=== PATIENT | male | born 2000 | race Caucasian/White ===

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

== ENCOUNTER 2019-01-29 15:46 | Outpatient (CLI) | payer MEDICAID, SELFPAY ==
[2019-01-29 16:25] LABS: Absolute Basophil Count 0.02 k/cumm (0.0-0.2); Absolute Eosinophil Count 0.03 k/cumm (0.0-0.7); Absolute Lymphocyte Count 1.65 k/cumm (1.2-3.4); Absolute Monocyte Count 0.59 k/cumm (0.11-0.7); Absolute Neutrophil Count 2.34 k/cumm (1.2-6.7); Basophils % 0.4; Eosinophils % 0.6; HCT 47.4 % (40.0-50.0); HGB 16.5 g/dL (13.5-17.5); Lymphocytes % 35.6; Mean Corp. HGB Concentration 34.8 g/dL (32.0-36.0); Mean Corpuscular Hemoglobin 30.6 pg (27.0-33.0); Mean Corpuscular Volume 87.8 fL (80-95); Mean Platelet Volume 11.3 fL (8.0-11.0); Monocytes % 12.7; Neutrophils % 50.7; Platelet Count 236 x1000/uL (130-400); RBC Distribution Width 12.5 % (11.8-14.1); White Blood Cell Count 4.63 k/cumm (4.4-10.8)
[2019-01-29 17:03] LABS: ESR 3 MM/HR (0-15)
[2019-01-29 18:07] LABS: ALT 34 U/L (12-78); AST 16 U/L (15-37); Albumin 4.3 g/dL (3.4-5.0); Alkaline Phosphatase 162 U/L (46-116); Anion Gap 9.8 mmol/L (3-11); BUN 10 mg/dL (7-18); Bilirubin, Total 0.7 mg/dL (0.2-1.0); CO2 27.2 mmol/L (21.0-32.0); Calcium 9.2 mg/dL (8.5-10.1); Chloride 105 mmol/L (98-107); Glucose 97 mg/dL (70-100); Potassium 4.2 mmol/L (3.5-5.1); Sodium 142 mmol/L (136-145); Total Protein 7.2 g/dL (6.4-8.2)
[2019-01-30 14:48] LABS: C-Reactive Protein 0.16 mg/dL (0.0-0.3)
[2019-02-01 12:09] LABS: Lyme Ab w Rflx to Lyme Confirm Negative
[2019-02-02 20:57] LABS: Anaplasma phagocytophilum Negative (Negative); B. miyamotoi PCR Negative (Negative); Babesia divergens/MO-1 Negative (Negative); Babesia duncani Negative (Negative); Babesia microti Negative (Negative); Ehrlichia chaffeensis Negative (Negative); Ehrlichia ewingii/canis Negative (Negative); Ehrlichia muris eauclairensis Negative (Negative)
== END 2019-01-29 16:06 ==
PROVIDERS: PCP Pediatrics; Visit Provider Nurse Practitioner Family
DX: R51 Headache (principal)
CPT/HCPCS: 36415; 80053; 85652; 85025; 86140; 86618; 87798

== ENCOUNTER 2019-02-01 06:28 | Outpatient (CLI) | payer MEDICAID, SELFPAY ==
--- NOTE | 2019-02-01 08:37 | DI.CT_ITS ---
SYMPTOM/DIAGNOSIS: HEADACHE AND PRESSURE NONCONTRAST HEAD CT: There are no prior comparison exams. No intracranial hemorrhage, mass or infarct is seen. The ventricles are normal in size. The sinuses and mastoid air cells appear clear. The orbits are unremarkable. IMPRESSION: Negative head CT. SINUS CT: The nasal septum is deviated toward the right. There is a spur projecting toward the right from the nasal septum. There is a small mucus retention cyst at the roof of the right maxillary sinus. There is mild mucosal thickening of the maxillary sinuses. The left ostiomeatal complex appears patent. There may be occlusion of the right ostiomeatal complex. The frontal and sphenoid sinuses are unremarkable. IMPRESSION: Deviated septum with spur. Small mucus retention cyst versus polyp at the roof the right maxillary sinus.
== END 2019-02-01 06:48 ==
PROVIDERS: PCP Pediatrics; Visit Provider Nurse Practitioner Family
DX: R51 Headache (principal); J34.2 Deviated nasal septum; J34.89 Other specified disorders of nose and nasal sinuses
CPT/HCPCS: 70450; 70486

== ENCOUNTER 2019-06-03 12:50 | Outpatient (CLI) | payer MEDICAID, SELFPAY ==
[2019-06-03 14:56] LABS: Anion Gap 10.6 mmol/L (3-11); CO2 28.4 mmol/L (21.0-32.0); Chloride 102 mmol/L (98-107); Potassium 3.9 mmol/L (3.5-5.1); Sodium 141 mmol/L (136-145); Vitamin B12 499 pg/mL (193-986)
== END 2019-06-03 13:10 ==
PROVIDERS: PCP Pediatrics; Visit Provider Otolaryngology Otolaryngology/Facial Plastic Surgery
DX: R51 Headache (principal)
CPT/HCPCS: 36415; 80051; 82607; 82746; 84443

== ENCOUNTER 2019-06-14 00:57 | Outpatient (CLI) | payer MEDICAID, SELFPAY ==
[2019-06-14] MEDS: Normal Saline Flush 10 ML SYR IVP (14:58)
[2019-06-14] MEDS: Gadoterate meglumine 20 ML VIAL 19 ML IVP (14:59)
--- NOTE | 2019-06-14 15:47 | DI.MRI_ITS ---
EXAM: MR IAC BRAIN WO/W CLINICAL HISTORY: NONINTRACTABLE EPISODIC KAUR, R51. TECHNIQUE: Multiplanar multisequence MRI was performed. COMPARISON: CT HEAD SINUS WO from 02/01/2019 FINDINGS: There is normal signal in the brain parenchyma. The ventricles are intact. The basilar cisterns are patent. Diffusion-weighted images have a normal appearance. Gradient images show no evidence of in tracranial hemorrhage. There is a normal flow void in the [id number]. The pituitary gland maylin ears unremarkable. The visualized paranasal sinuses are clear. No masses are seen in the internal a uditory canals or cerebellopontine angles. Following contrast administration no enhancing lesions are seen. No masses are seen. IMPRESSION: Normal MRI of the brain.
== END 2019-06-14 01:17 ==
PROVIDERS: PCP Pediatrics; Visit Provider Otolaryngology Otolaryngology/Facial Plastic Surgery
DX: R51 Headache (principal)
CPT/HCPCS: 70553

== ENCOUNTER 2024-01-15 17:09 | Emergency (ER) | payer OTHER, MEDICAID, SELFPAY ==
[2024-01-15 17:11] VITALS: BP 160/82; PULSE 75; RESP 18; TEMP 36.8; O2SAT 100
--- NOTE | 2024-01-15 17:15 | DI.CT_ITS ---
Exam(s) CT HEAD FACIAL WO EXAM: CT HEAD FACIAL WO CLINICAL HISTORY: heavy object fell on his face/head. TECHNIQUE: Imaging Protocol: Axial computed tomography images with coronal and sagittal reformatted images were created and reviewed COMPARISON: CT CT HEAD SINUS WO from 02/01/2019 FINDINGS: BRAIN: There are no skull fractures nor fluid in the visualized paranasal sinuses. There is no evidence of intracranial hemorrhage, mass effect, or shift of midline structures. There are no extra-axial fluid collections. The ventricles are not enlarged or shifted and there is no blo od within the ventricular system nor within the basal cisterns. MAXILLOFACIAL CT SCAN: There is no evidence of acute facial fractures. No evidence of orbital blowout fracture. There is m ucosal thickening circumferentially within the left maxillary sinus without an associated fluid level . The right maxillary sinus is clear. Mild mucosal thickening noted in the left frontoethmoidal rec ess. Nasal bone fracture on the right side which does not appear acute and was previously present on CT sc an of January 2019. IMPRESSION: No acute intracranial findings on this noninfused CT scan of the brain.No skull fracture. No evidence of acute facial bone fractures nor orbital fractures. Mucosal thickening in left maxillary sinus. No fluid level. Called by myself to ER physician RADIATION DOSE DELIVERED: 1,569.01mGy.cm Total DLP DATA REPOSITORY: All CT scans at this facility are submitted to the National Radiology Data Registry (NRDR) Dose Index Registry (DIR) with the [employer] (A[employer]). RADIATION OPTIMIZATION: All CT scans at this facility use at least one of these dose optimization te chniques: automated exposure control; mA and/or kV adjustment per patient size (includes targeted exa ms where dose is matched to clinical indication); or iterative reconstruction.
--- NOTE | 2024-01-15 17:26 | ED.GENADUL_ITS ---
Discharge Plan Disposition Patient Disposition: Home Condition: Stable Discharge Details Chief Complaint: HeadInjury Clinical Impression: Blunt trauma of face, Blunt head trauma Primary Care Provider: None,None ED Provider: Kwasi Esparza Home Meds and New Rx's Prescriptions: No Action No Known Home Meds Discharge Instructions Additional Instructions: Your CAT scan did not show any concerning findings If you have lingering headaches or issues with your memory follow-up with your primary care provider within a week If you feel more ill, have severe worsening pain or new symptoms such as persistent vomiting return to the emergency department for reevaluation Stand Alone Forms: Work Release [facility] General Mode of arrival: ambulatory . Date/Time Provider Initiated Documentation: 01/15/24 17:15 . Limitations to Documentation: no limitations . Information obtained by: patient . History of Present Illness 23 year old M presents to the emergency department with the chief complaint of Patient had trauma, described as moderate, Quality is described as aching, Patient reports no radiation. Patient started experiencing this hour(s) (3) and it has been constant. No relieving factors improve symptom(s), No exacerbating factors reported . Patient notes denies chest pain and shortness of breath. Related Data Home Medications Medication Instructions Recorded Confirmed Unknown [No Known Home Meds] 01/15/24 01/15/24 Allergies Allergy/AdvReac Type Severity Reaction Status Date / Time No Known Allergies Allergy Unverified 01/15/24 17:13 General Stated Complaint: HeadInjury DULCE: 3 Review of Systems All systems reviewed & are unremarkable except as noted in HPI and below Constitutional Constitutional: Denies chills, Denies fever(s) and Denies weakness Cardiovascular Cardiovascular: Denies chest pain and Denies dyspnea Respiratory Respiratory: Denies cough and Denies dyspnea Gastrointestinal Gastrointestinal: Denies abdominal pain, Denies nausea and Denies vomiting Musculoskeletal Musculoskeletal: Denies joint swelling Neurologic Neurologic: Denies weakness Psychiatric Psychiatric: Denies depression Exam Const General: no acute distress Orientation: alert and oriented x3 HENMT Head: no Giraldo's sign and no scalp tenderness Ears: external ears normal General nose exam: external nose normal Mouth: moist mucous membranes Eyes General: appearance normal, both eyes and all related structures Neck Neck: normal visual inspection Resp Effort & Inspection: normal respiratory effort and able to speak in complete sentences Cardio Rate: regular rate Skin General skin exam: no rashes or lesions noted Neuro General: patient alert and patient oriented x3 Extrem General: normal to inspection Psych Mental Status: mental status grossly normal Course Vital Signs Vital signs: Vital Signs Temperature 36.8 C 01/15/24 17:11 Pulse 75 01/15/24 17:11 Respiratory Rate 18 01/15/24 17:11 Blood Pressure 160/82 H 01/15/24 17:11 Pulse Oximetry 100 01/15/24 17:11 Temperature 36.8 C 01/15/24 17:11 Temperature Source Skin 01/15/24 17:11 Pulse 75 01/15/24 17:11 Respiratory Rate 18 01/15/24 17:11 Respiratory Effort Normal, Non-Labored 01/15/24 17:14 Blood Pressure 160/82 H 01/15/24 17:11 Blood Pressure Position Sitting 01/15/24 17:11 Pulse Oximetry 100 01/15/24 17:11 Oxygen Delivery Method Room Air 01/15/24 17:11 Oxygen Flow Rate 0 01/15/24 17:11 Pain Level 3 01/15/24 17:11 Medical Decision Making 23-year-old male who denies any significant chronic medical problems, comes in after he was at work around 245 this afternoon and about a 100 pound object fell from 15 feet landing on his face and head. Denies loss of consciousness, nausea but no vomiting since. He has swelling to the mid anterior nose, no septal hematoma, no scalp hematomas, he is alert and oriented x 4 on arrival speaking clearly, pedal nerves II through XII are intact, no midline C-spine tenderness. Suspect facial contusion and concussion but will obtain CT head and face to evaluate for traumatic injury Differential Diagnosis Differential Diagnosis: Facial fracture, TBI, concussion Quality:SDOH Health Related Social Needs: No Data to Display PFSH All Active Problems (Updated 01/15/24 @ 18:52 by Kwasi Esparza MD) Blunt head trauma (Acute) Blunt trauma of face (Acute) Visual changes (Acute) Disequilibrium (Acute) Nonintractable episodic headache (Acute) Precordial catch syndrome (Acute 05/29/16) Routine sports examination for healthy child or adolescent (Acute) Medical History Scoliosis History of tobacco use Hypertension Headache Family History Mother Healthy adult on routine physical examination Father Healthy adult on routine physical examination Other Diabetes pat aunt Personal history of malignant neoplasm MGGM-breast Social History Smoking/Tobacco Use Status: Former Tobacco Use Smoking risk assessment performed?: Yes Alcohol Intake: current Alcohol Intake frequency: a few times a week Drug use: Never
[2024-01-15] MEDS: Ibuprofen 600 MG TAB PO (17:32)
[2024-01-15 18:17] VITALS: BP 154/85; PULSE 74; RESP 14; O2SAT 99
[2024-01-15 19:01] VITALS: BP 171/100; PULSE 69; RESP 18; O2SAT 100
== END 2024-01-15 19:03 | disposition home or self-care (01) ==
PROVIDERS: Emergency Provider Emergency Medicine
DX: S02.2XXA Fracture of nasal bones, initial encounter for closed fracture (principal); S09.93XA Unspecified injury of face, initial encounter; Z87.891 Personal history of nicotine dependence; W31.89XA Contact with other specified machinery, initial encounter; Y93.89 Activity, other specified; Y92.89 Other specified places as the place of occurrence of the external cause; Y99.0 Civilian activity done for income or pay; I10 Essential (primary) hypertension
CPT/HCPCS: 99284; 70450; 70486

== ENCOUNTER 2025-05-08 11:17 | Emergency (ER) | payer MEDICAID, SELFPAY ==
[2025-05-08 11:25] VITALS: BP 129/81; PULSE 80; RESP 16; TEMP 36.7; O2SAT 98
[2025-05-08 11:32] VITALS: BP 129/81; PULSE 80; RESP 16; TEMP 36.7; O2SAT 97
--- NOTE | 2025-05-08 11:49 | W.ED.GENAD ---
Discharge Plan Disposition Patient Disposition: Home Discharge Details Clinical Impression: Acute sore throat, Angular cheilitis Primary Care Provider: None,None ED Provider: Lizette Garza Home Meds and New Rx's Prescriptions: No Action No Known Home Meds Discharge Instructions Instructions: Viral Pharyngitis Additional Instructions: A referral has been placed for care management to help you establish care with a primary care provider. Please work with them to schedule an appointment with a new PCP. Your COVID/flu and strep today were negative. Your symptoms today are most consistent with a viral illness. Please stay well hydrated, drinking plenty of fluids throughout the day. Throat lozenges may be helpful, as well as iced drinks. You may use ibuprofen 600 mg every 8 hours and tylenol 650 mg every 8 hours as needed for sore throat. Get plenty of rest. Practice good handwashing and wear a mask in public if you are coughing to avoid spreading illness to others. Your mouth sores are consistent with angular cheilitis. I recommend that you avoid pooling of moisture at the sides of your lips. You may apply zinc oxide paste or vaseline to provide a good barrier. Avoid licking lips. Return to emergency care if you develop difficulty breathing, inability to swallow due to throat pain or swelling, muffled voice, swelling on one side of your neck (like a golf ball), new high fevers, or if you are very worried and need to be rechecked again immediately. Referrals: Care Management [Provider Group] HPI General Date/Time Provider Initiated Documentation: 05/08/25 11:32. HPI Narrative: Leon is a 24-year-old male who presents to the emergency department today for evaluation of sore throat. Reports symptoms started with sore throat since Friday with fever (100.5?F), chills, body aches, headaches, left ear pain, nausea, and diarrhea. Symptoms have largely resolved, however has had persistent worsening sore throat, left ear discomfort, and mild diarrhea. Denies associated cough, chest pain, difficulty breathing, vomiting, blood in stool, change in urine output. Symptoms managed with Tylenol and ibuprofen. No recent antibiotics. Denies significant past medical history. He also reports that he has had sores on the side of his mouth for the last 2 months, has reduced lip licking but they have persisted. No other sores. Does have pain when skin gets dry and he opens his mouth. Does not currently have a PCP. Related Data Home Medications ?Medication ?Instructions ?Recorded ?Confirmed Unknown [No Known Home Meds] 01/15/24 05/08/25 Allergies Allergy/AdvReac Type Severity Reaction Status Date / Time No Known Allergies Allergy Unverified 05/08/25 11:33 General Stated Complaint: Sorethroat DULCE: 4 Exam Narrative Exam Narrative: General Appearance: Normal. Vital signs: Within normal limits. HEENT: Slightly red throat, no tonsillar hypertrophy/exudate. Uvula midline. No trismus. Moist mucous membranes. No cervical or submandibular lymphadenopathy. TMs pearly bertrand, translucent. Cardiovascular: Regular rate and rhythm, normal heart sounds. Respiratory: Lungs clear bilaterally, easy work of breathing Gastrointestinal: Soft, non-tender abdomen. Skin: Dry skin at mouth corners, no erythema or drainage. Psychiatric: Normal. Course Vital Signs Vital signs: Vital Signs Temperature 36.7 C 05/08/25 11:25 Pulse 80 05/08/25 11:25 Respiratory Rate 16 05/08/25 11:25 Blood Pressure 129/81 05/08/25 11:25 Pulse Oximetry 98 05/08/25 11:25 Temperature 36.7 C 05/08/25 11:32 Temperature Source Oral 05/08/25 11:32 Pulse 80 05/08/25 11:32 Respiratory Rate 16 05/08/25 11:32 Blood Pressure 129/81 05/08/25 11:32 Blood Pressure Position Sitting 05/08/25 11:32 Pulse Oximetry 97 05/08/25 11:32 Oxygen Delivery Method Room Air 05/08/25 11:25 Oxygen Flow Rate 0 05/08/25 11:25 Lab/Test Results Lab/Test Results: POC Strep Test-SUJATA(Rapid) Start: 05/08/25 11:35 Freq: .Rapid Strep Test Status: Active Protocol: Document 05/08/25 11:46 NF (Rec: 05/08/25 11:47 NF [id number]) Strep test-SUJATA(Rapid)-POC POC-Strep test-SUJATA ( Negative Rapid) POC-Strep test-SUJATA (Rapid) Negative Medical Decision Making Initial Assessment: 24-year-old male with sore throat, fever, chills, body aches, earache, nausea, diarrhea, and mouth sores. Son recently sick with similar symptoms. Differential Diagnosis includes but is not limited to: Viral illness just COVID-19, strep. Mouth sores do not appear infected, likely angular cheilitis. No red flags concerning for airway compromise, peritonsillar or retropharyngeal abscess, or other deep space infection requiring emergent diagnostic imaging or blood work at this time. Patient does not meet SIRS criteria. ED Course: - Strep swab and COVID/flu rapid test performed - Referral to personal care aide for primary care setup. Dependently interpreted the following test: COVID/flu and rapid strep negative. Final Assessment: 24-year-old male with sore throat, fever, chills, body aches, earache, nausea, diarrhea, and mouth sores. Strep swab conducted. Referral to personal care aide for primary care setup. Clinical Impression: - Sore throat, likely viral pharyngitis - Mouth sores, consistent with angular cheilitis Disposition: Reviewed discharge instructions with patient, including symptomatic management and importance of follow-up with PCP. - Discharge: Home. Return if symptoms worsen or new symptoms develop. - Follow-Up: Referral to personal care aide for primary care setup. Patient Education: - Continue Tylenol and ibuprofen for discomfort. - Use menthol [place] drops for sore throat relief. Patient consented to the use of ZACHARY PFSH All Active Problems (Updated 05/08/25 @ 12:19 by Lizette Isaacs) Angular cheilitis (Acute) Acute sore throat (Acute) Visual changes (Acute) Disequilibrium (Acute) Nonintractable episodic headache (Acute) Precordial catch syndrome (Acute 05/29/16) Routine sports examination for healthy child or adolescent (Acute) Medical History Scoliosis History of tobacco use Hypertension Headache Family History Mother Healthy adult on routine physical examination Father Healthy adult on routine physical examination Other Diabetes pat aunt Personal history of malignant neoplasm MGGM-breast Social History Smoking/Tobacco Use Status: Current every day Tobacco Type: cigarettes Smoking risk assessment performed?: Yes Alcohol Intake: current Alcohol Intake frequency: a few times a week Alcohol type: beer Drug use: Never Substance use type: does not use PAWSS Have you Been Recently Intoxicated or Drunk Within the Last 30 days?: Yes Have you Ever Experienced Previous Episodes of Alcohol Withdrawal?: No Have you ever Experienced Withdrawal Seizures?: No Have you ever Experienced Delirium Tremens(DT)s?: No Have you ever undergone Alcohol Rehabilitation Treatment (i.e, inpt ot outpatient treatment programs)?: No Have you ever Experienced Blackouts?: No Have you ever Combined Alcohol with other Downers within the last 90 days?: No Have you ever Combined Alcohol with any other Substance of Abuse during the last 90 days?: No Positive Blood Alcohol level on Presentation? [PCS.BAL]: No Evidence of Increased Autonomic Activity (i.e. HR>120, tremor, sweating, agitation, nausea)?: No Result: 1
[2025-05-08 12:35] VITALS: BP 137/97; PULSE 77; RESP 10; O2SAT 99
== END 2025-05-08 12:36 | disposition home or self-care (01) ==
PROVIDERS: Emergency Provider Nurse Practitioner Family
DX: J02.9 Acute pharyngitis, unspecified (principal); K13.0 Diseases of lips
CPT/HCPCS: 99283 ×2; 87880; 87428; 87081